=== PATIENT | female | born 1960 | race Caucasian/White ===

== ENCOUNTER 2019-08-23 18:39 | Emergency (ER) | payer MEDICARE ==
[~2019-08-23] VITALS: Ht 160 cm; Wt 62.0 kg
--- NOTE | 2019-08-23 18:58 | NUR ---
FRANNY HANSEN from [facility]. Visiting from [place]. Patient reports episode of lightheadedness, nausea, palpitations, and weakness about 30 min ago. Patient states symptoms have resolved a this point. A&Ox4. NAD. 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 at bedside. Will continue to monitor.
[2019-08-23] MEDS ORDERED: SODIUM CHLORIDE 0.9% 1,000 ML IV ONE (19:02)
[2019-08-23] MEDS ORDERED: LORazepam 2 MG/ML, 1ML ONE (19:19)
[2019-08-23 19:29] LABS: ALBUMIN 3.3 g/dL (3.4-5.0); ANION GAP 7 mmol/L (5-15); CALCIUM 8.6 mg/dL (8.5-10.1); CHLORIDE 102 mmol/L (98-107); CREATININE 2.22 mg/dL (0.55-1.02)
[2019-08-23] MEDS ORDERED: LORazepam 2 MG/ML, 1ML IVPush ONE (19:30)
[2019-08-23] MEDS ORDERED: SODIUM CHLORIDE FLUSH 10ML SYR IVF ONE (19:30)
[2019-08-23] MEDS ORDERED: SODIUM CHLORIDE 0.9% 1,000ML IVBOLUS ONE (19:30)
--- NOTE | 2019-08-23 20:06 | NUR ---
Delay in care d/t patient being difficult stick. NS bolus hung and ativan admin. UA sent to lab. No other needs.
[2019-08-23 20:22] LABS: MEAN CORPUSCULAR HEMOGLOBIN 31.6 pg (27.0-34.8); MEAN CORPUSCULAR HGB CONC 32.5 g/dL (32.4-35.8); MEAN CORPUSCULAR VOLUME 97.2 fL (80-100); MEAN PLATELET VOLUME 6.9 fL (7.4-10.4); PLATELET COUNT 258 x10^3/uL (130-400)
[2019-08-23 20:24] LABS: MD YES
[2019-08-23 20:25] LABS: EOS#(MANUAL) 0.07 x10^3/uL (0.0-0.4); EOS% (MANUAL) 2 % (1-7); LYMPHS% (MANUAL) 19 % (22-44); MONOS#(MANUAL) 0.48 x10^3/uL (0.3-2.7); MONOS% (MANUAL) 13 % (2-9); REACTIVE LYMPHS # (MANUAL) 0.07 x10^3/uL (0-0); REACTIVE LYMPHS % (MANUAL) 2 % (0-0); SEG#(MANUAL) 2.37 x10^3/uL (1.8-6.8); SEGS% (MANUAL) 64 % (42-75)
[2019-08-23 20:26] LABS: MICROSCOPIC AUTO
[2019-08-23 20:26] LABS: <PLATELET ESTIMATE> ADEQUATE; <PLT MORPHOLOGY> NORMAL PLT MORPH; ANISOCYTOSIS 1+; OVALOCYTES 1+; SPHEROCYTES 1+
[2019-08-23 20:27] LABS: HYPOCHROMIA 1+
[2019-08-23 20:30] LABS: CULTURE INDICATED? NO
--- NOTE | 2019-08-23 20:41 | NUR ---
VSS. No needs at this time.
--- NOTE | 2019-08-23 20:51 | NUR ---
Report to PREMA Villegas.
[2019-08-23 21:40] VITALS: BP 152/83
== END 2019-08-23 21:43 | disposition home or self-care (01) ==
LOC: ED 21:35
DX: E86.0 Dehydration (principal); N18.4 Chronic kidney disease, stage 4 (severe); Z86.73 Personal history of transient ischemic attack (TIA), and cerebral infarction without residual deficits
CPT/HCPCS: 36415; 80048; 81001; 82040; 85025; 93005; 96361; 96374; 99284; J2060; J7030